=== PATIENT | female | born 1940 | race Two or more races ===

== ENCOUNTER 2024-11-07 11:30 | Day surgery (SDC) | payer MEDICARE, BC, SELFPAY ==
--- NOTE | 2024-11-05 14:40 | EKG_ITS ---
[facility] Test Date: 2024-11-05 Pat Name: YUE PEÑA Department: Room: - Gender: Female [employer]: [facility] : 1940 Requested By: David Glaser Order Number: [id number] Reading MD: David Glaser Measurements Intervals [place] Rate: 73 P: 25 [place]: 175 QRS: 4 QRSD: 87 T: 44 QT: 388 QTc: 428 Interpretive Statements SINUS RHYTHM No previous ECG available for comparison /store/S0/[id number]
[2024-11-05 16:03] LABS: Alanine Aminotransferase 12 U/L (10-49); Albumin, Serum 4.4 gm/dL (3.4-4.8); Albumin/Globulin Ratio 1.6 (1.2-2.2); Alkaline Phosphatase 74 U/L (46-116); Anion Gap 7 (7-16); Aspartate Amino Transferase 15 U/L (0-34); BUN/Creatinine Ratio 24 Ratio (12-20); Bilirubin,Total 0.6 mg/dL (0.3-1.2); Blood Urea Nitrogen 19 mg/dL (9-23); Calcium 9.4 mg/dL (8.3-10.6); Calcium (Corrected) 9.4 mg/dL (8.5-10.1); Carbon Dioxide 27.9 mMol/L (20.0-31.0); Chloride 108 mMol/L (98-107); Creatinine (Component) 0.8 mg/dL (0.6-1.3); Globulin 2.8 gm/dL (2.3-3.5); Glucose 121 mg/dL (74-106); Osmolality,Calculated 288 (275-295); Potassium 3.9 mMol/L (3.4-5.1); Sodium 143 mMol/L (136-145); Total Protein 7.2 gm/dL (5.7-8.2); eGFR > 60 See Note
[2024-11-07 12:16] VITALS: BP 137/64; PULSE 63; RESP 18; TEMP 36.6; O2SAT 96; BMI 28.3
[2024-11-07] MEDS: RINGERS LACTATED 1000 ML 1,000 ML 20 ML IV (14:08)
[2024-11-07 14:44] VITALS: BP 119/64; PULSE 70; RESP 19; TEMP 36.7; O2SAT 97
[2024-11-07 14:55] VITALS: BP 140/64; PULSE 63; RESP 17; O2SAT 100
[2024-11-07 15:05] VITALS: BP 143/70; PULSE 59; RESP 14; O2SAT 97
[2024-11-07 15:15] VITALS: BP 146/73; PULSE 58; RESP 16; TEMP 36.7; O2SAT 98
--- NOTE | 2024-11-07 16:26 | SUR.PHASEII ---
1444: Pt received in [facility] via gurney. Report from Dorinda FLANAGAN and Dr. Contreras. Pt sleepy. Is arousable with eye opening then drifts back to sleep. Resp even, unlabored. VS stable. No c/o pain, discomfort. 1520: Pt more awake, alert. Resp even, unlabored. VS stable. Denies pain. Sitting up tolerating po fluids with no difficulty swallowing and no n/v. 1530: Pt fully awake, oriented x3. Pt dressed and assisted to transport chair. Ambulation steady. Dr. Milelr in to talk with pt. 1540: Pt and daughter stated understanding of discharge instructions. Pt discharged from [facility] in stable condition.
== END 2024-11-07 15:40 | disposition home or self-care (01) ==
PROVIDERS: PCP Family Medicine; Referring Provider Internal Medicine Gastroenterology; Visit Provider Internal Medicine Gastroenterology
PROC: (CPT 43239; principal; 2024-11-07 12:45)
DX: K29.60 Other gastritis without bleeding (principal); K44.9 Diaphragmatic hernia without obstruction or gangrene; Q39.9 Congenital malformation of esophagus, unspecified; I10 Essential (primary) hypertension; Z01.810 Encounter for preprocedural cardiovascular examination; K29.50 Unspecified chronic gastritis without bleeding; K31.A0 Gastric intestinal metaplasia, unspecified
CPT/HCPCS: 43239; 36415; 80053; 93005; A4217; A4649; C1725; C1726; J7120

== ENCOUNTER → 2024-12-07 | Outpatient (CLI) | payer MEDICARE, BC, SELFPAY ==
[2024-12-07 11:59] LABS: Urea Breath Test Negative (Negative)
== END | disposition home or self-care (01) ==
LOC: COPL 10:07
PROVIDERS: PCP Family Medicine; Referring Provider Internal Medicine Gastroenterology; Visit Provider Internal Medicine Gastroenterology
DX: Z01.89 Encounter for other specified special examinations (principal); B96.81 Helicobacter pylori [H. pylori] as the cause of diseases classified elsewhere
CPT/HCPCS: 83013; 83014

== ENCOUNTER → 2024-12-14 | Outpatient (CLI) | payer MEDICARE, BC, SELFPAY ==
[2024-12-14 15:39] LABS: Collection Type, Urine Clean Catch
[2024-12-14 17:47] LABS: Bilirubin,Urine Negative (Negative); Blood,Urine Negative (Negative); Clarity,Urine Clear (Clear/Hazy); Color,Urine Lt-Yellow (Lt Yel-Yel); Glucose, Urine Negative (Negative); Ketones,Urine Negative (Negative); Leukocyte Esterase,Urine Negative (Negative); Nitrite,Urine Negative (Negative); PH,Urine 6.5 (5.0-7.0); Protein,Urine Negative (Neg - Trace); RBC,Urine < 1 /hpf (0-3); Specific Gravity,Urine 1.007 (1.001-1.035); Squamous Epithelial Cell,Urine 1 /hpf (0-5); Urobilinogen,Urine Negative mg/dL (0.0-1.0); WBC,Urine < 1 /hpf (0-5)
== END | disposition home or self-care (01) ==
LOC: SLDO 15:29
PROVIDERS: PCP Nurse Practitioner Family; Referring Provider Nurse Practitioner Family; Visit Provider Nurse Practitioner Family
DX: N30.00 Acute cystitis without hematuria (principal)
CPT/HCPCS: 81001; 87086

== ENCOUNTER → 2025-02-26 | Outpatient (CLI) | payer MEDICARE, BC, SELFPAY ==
[2025-02-26 13:45] LABS: Basophils % (Auto) 0 % (0-2.5); Eosinophils # (Auto) 0.2 Thou/mm3 (0.0-0.5); Eosinophils % (Auto) 4 % (0-10); Hematocrit 35.4 % (36.0-46.0); Hemoglobin 11.6 g/dL (12.0-16.0); Immature Granulocytes % (Auto) 0 % (0-0); Immature Granulocytes Auto 0.01 Thou/mm3 (0.00-0.00); Lymphocytes # (Auto) 2.5 Thou/mm3 (1.0-4.8); Lymphocytes % (Auto) 40 % (10-50); Mean Corpuscular HGB Conc 32.8 g/dl (31.0-37.0); Mean Corpuscular Hemoglobin 26.9 pg (25.0-35.0); Mean Corpuscular Volume 82 fL (80-100); Monocytes # (Auto) 0.5 Thou/mm3 (0.0-0.8); Monocytes % (Auto) 7 % (0-12); Neutrophils # (Auto) 3.1 Thou/mm3 (1.8-7.7); Neutrophils % (Auto) 49 % (37-80); Nucleated Red Blood Cell % 0 /100 WBC (0); Platelet Count 279 Thou/mm3 (140-440); RDW Standard Deviation 46.6 fL (36.4-46.3); Red Blood Count 4.31 Miln/mm3 (4.00-5.20); White Blood Count 6.4 Thou/mm3 (3.6-11.0)
[2025-02-26 13:59] LABS: T4 (Thyroxine) 10.3 mcg/dL (4.5-10.9)
[2025-02-26 14:05] LABS: Alanine Aminotransferase 10 U/L (10-49); Albumin, Serum 4.5 gm/dL (3.4-4.8); Alkaline Phosphatase 76 U/L (46-116); Anion Gap 9 (7-16); Aspartate Amino Transferase 15 U/L (0-34); BUN/Creatinine Ratio 32 Ratio (12-20); Bilirubin,Total 0.7 mg/dL (0.3-1.2); Blood Urea Nitrogen 19 mg/dL (9-23); Calcium 9.2 mg/dL (8.3-10.6); Calcium (Corrected) 9.2 mg/dL (8.5-10.1); Carbon Dioxide 25.9 mMol/L (20.0-31.0); Cardiac Risk Estimate 3.2 RATIO (3.7-5.6); Chloride 108 mMol/L (98-107); Cholesterol 167 mg/dL (132-200); Creatinine (Component) 0.6 mg/dL (0.6-1.3); Globulin 2.3 gm/dL (2.3-3.5); Glucose 107 mg/dL (74-106); HDL Cholesterol 53 mg/dL (40-60); LDL Cholesterol,Calculated 91 mg/dL (0-130); Osmolality,Calculated 287 (275-295); Potassium 4.1 mMol/L (3.4-5.1); Sodium 143 mMol/L (136-145); Thyroid Stimulating Hormone 0.47 uIU/mL (0.55-4.78); Total Protein 6.8 gm/dL (5.7-8.2); Triglycerides 117 mg/dL (30-150); eGFR > 60 See Note
== END | disposition home or self-care (01) ==
PROVIDERS: PCP Family Medicine; Referring Provider Family Medicine; Visit Provider Family Medicine
DX: I10 Essential (primary) hypertension (principal); E03.9 Hypothyroidism, unspecified; J45.20 Mild intermittent asthma, uncomplicated
CPT/HCPCS: 36415; 80053; 80061; 84436; 84443; 85025

== ENCOUNTER → 2025-03-12 | Outpatient (CLI) | payer MEDICARE, BC, SELFPAY ==
--- NOTE | 2025-03-12 12:20 | XR_ITS ---
Examination: Bone densitometry Date and time of exam:March 12, 2025 12:44 PM INDICATIONS: Menopause age 53, family history, mother osteoporosis, personal history osteopenia Technique: Lumbar spine and hip total bone mineralization values of an calculated. Peak reference and age match control results have been displayed. Findings: Lumbar spine total bone mineralization is0.859 gm/cm2. This is 1.7 standard deviations below peak reference. This is 1.1 standard deviations above age-matched controls. Hip total bone mineralization is 0.799 gm/cm2 This is 1.2 standard deviations below peak reference. This is 1.0 standard deviations above age-matched controls Impression: There is osteopenia based on lumbar spine measurements. There is osteopenia based on hip measurements Lumbar mineralization is decreased 0.9% compared with November 30, 2022 Hip mineralization is decreased 5.1% compared with November 30, 2022
== END | disposition home or self-care (01) ==
PROVIDERS: PCP Family Medicine; Referring Provider Family Medicine; Visit Provider Family Medicine
DX: M85.89 Other specified disorders of bone density and structure, multiple sites (principal)
CPT/HCPCS: 77080

== ENCOUNTER → 2025-04-01 | Outpatient (CLI) | payer MEDICARE, BC, SELFPAY ==
[2025-04-01 11:49] LABS: Thyroid Stimulating Hormone 0.79 uIU/mL (0.55-4.78)
[2025-04-08 06:48] LABS: ANA Screen, IFA NEGATIVE (NEGATIVE)
== END | disposition home or self-care (01) ==
LOC: COPL 10:41
PROVIDERS: PCP Family Medicine; Referring Provider Specialist; Visit Provider Specialist
DX: K30 Functional dyspepsia (principal); R13.10 Dysphagia, unspecified
CPT/HCPCS: 36415; 84443; 86038

== ENCOUNTER 2025-04-29 12:05 | Day surgery (SDC) | payer MEDICARE, BC, SELFPAY ==
[2025-04-29] VITALS (8 sets, daily range): BP systolic 129–193; BP diastolic 62–92; PULSE 62–81; RESP 14–26; TEMP 36.1–36.5; O2SAT 91–100; BMI 29.8
[2025-04-29] MEDS: BENZOCAINE 20% (Hurricaine) SPRAY 1 DOSE TOP (15:03)
[2025-04-29] MEDS: SODIUM CHLORIDE 0.9% 500 ML 500 ML 20 ML IV (15:04)
[2025-04-29] MEDS: MIDAZOLAM INJ 1 MG/ML VIAL 2 ML (ASD USE ONLY) 2 MG IVP (15:05)
[2025-04-29] MEDS: fentaNYL CIT INJ 50 mCg/ML AMP 2ML (ASD USE ONLY) IVP (15:05)
== END 2025-04-29 15:45 | disposition home or self-care (01) ==
PROVIDERS: PCP Nurse Practitioner Family; Referring Provider Specialist; Visit Provider Specialist
PROC: (CPT 43239; principal; 2025-04-29 13:15)
DX: K22.2 Esophageal obstruction (principal); K20.90 Esophagitis, unspecified without bleeding; K31.89 Other diseases of stomach and duodenum; K29.50 Unspecified chronic gastritis without bleeding; K31.A0 Gastric intestinal metaplasia, unspecified; K44.9 Diaphragmatic hernia without obstruction or gangrene
CPT/HCPCS: 43248; 43239; J1200; J2250; J3010; J7999; A9270

== ENCOUNTER → 2025-05-16 | Outpatient (CLI) | payer MEDICARE, BC, SELFPAY ==
--- NOTE | 2025-05-16 09:30 | XR_ITS ---
Examination: Esophagram standard 14 spot fluoroscopic films of the esophagus Upright PA chest single view Upright soft tissue lateral neck single view Fluoroscopy Date and time: May 16, 2025 0952 hours INDICATIONS: History esophageal dilatations times today difficulty swallowing persists difficult the with choking 6 months TECHNIQUE AND FINDINGS: Upright PA chest demonstrates mild prominence left ventricle, retrocardiac gastric hernia Soft tissue lateral neck normal epiglottis Mild prevertebral soft tissue prominence Patient swallowed thin barium with numerous secondary and tertiary esophageal contractions Stricture the gastroesophageal junction 70% Large retrocardiac gastric hernia Esophageal spasm IMPRESSION: Severe esophageal dysmotility Stricture at the gastroesophageal junction 70%, clinical correlation advised
== END | disposition home or self-care (01) ==
LOC: CDIM 09:14
PROVIDERS: PCP Family Medicine; Referring Provider Specialist; Visit Provider Specialist
DX: K22.2 Esophageal obstruction (principal)
CPT/HCPCS: 74220; A4649

== ENCOUNTER → 2025-06-10 | Outpatient (CLI) | payer MEDICARE, BC, SELFPAY ==
--- NOTE | 2025-06-10 09:09 | XR_ITS ---
Examination: Screening digital mammography, bilateral Computer aided detection 3-D breast Tomosynthesis, bilateral Date and time of exam: June 10, 2025 0940 hours, compared to mammograms dating to August 18, 2020 Indication: Screening Technique: Nonmagnified MLO, CC views of the breasts to been obtained, reconstructed from 3-D Tomosynthesis images. R2 computer aided detection program utilized for evaluation of suspicious masses and/or abnormal calcifications. 3-D Tomosynthesis images obtained. Findings: The breasts are heterogeneously dense, which may obscure small masses 12 mm nodule 12:00 position right breast partially indistinct margins Impression: BI-RADS Category 0: Incomplete: Need additional imaging evaluation Recommend follow-up spot tomographic views of 12 mm nodule 12:00 position right breast as well as bilateral breast sonography to complete the workup
--- NOTE | 2025-06-10 09:15 | XR_ITS ---
Examination: Breast ultrasound, unilateral, left complete Date and time of exam: June 10, 2025 0926 hours INDICATIONS: Family history breast cancer, mother, sister, negative left breast biopsy 2 years ago, 3:00 nodule 8 mm on left breast sonogram 06/08/2024. Technique: Real-time guzman scale ultrasonographic imaging performed left breast including all 4 quadrants as well as nipple retroareolar and axillary region. Findings: 3:00 nodule 6 x 7 mm partially indistinct margins IMPRESSION: BI-RADS Category 0: Incomplete: Need additional imaging evaluation Recommend follow-up diagnostic mammography
[2025-06-10 11:55] LABS: Basophils # (Auto) 0.0 Thou/mm3 (0.0-0.2); Basophils % (Auto) 1 % (0-2.5); Eosinophils # (Auto) 0.2 Thou/mm3 (0.0-0.5); Eosinophils % (Auto) 3 % (0-10); Hematocrit 38.4 % (36.0-46.0); Hemoglobin 12.2 g/dL (12.0-16.0); Immature Granulocytes Auto 0.01 Thou/mm3 (0.00-0.00); Lymphocytes # (Auto) 2.6 Thou/mm3 (1.0-4.8); Lymphocytes % (Auto) 43 % (10-50); Mean Corpuscular HGB Conc 31.8 g/dl (31.0-37.0); Mean Corpuscular Hemoglobin 27.5 pg (25.0-35.0); Mean Corpuscular Volume 87 fL (80-100); Monocytes # (Auto) 0.4 Thou/mm3 (0.0-0.8); Monocytes % (Auto) 7 % (0-12); Neutrophils # (Auto) 2.8 Thou/mm3 (1.8-7.7); Neutrophils % (Auto) 47 % (37-80); Nucleated Red Blood Cell # 0.00 Thou/mm3 (0.00-0.00); Nucleated Red Blood Cell % 0 /100 WBC (0); Platelet Count 275 Thou/mm3 (140-440); RDW Standard Deviation 47.4 fL (36.4-46.3); Red Blood Count 4.44 Miln/mm3 (4.00-5.20); White Blood Count 6.0 Thou/mm3 (3.6-11.0)
[2025-06-10 12:13] LABS: T4 (Thyroxine) 10.8 mcg/dL (4.5-10.9)
[2025-06-10 12:16] LABS: Alanine Aminotransferase 8 U/L (10-49); Albumin, Serum 4.4 gm/dL (3.4-4.8); Albumin/Globulin Ratio 1.8 (1.2-2.2); Alkaline Phosphatase 75 U/L (46-116); Anion Gap 10 (7-16); Aspartate Amino Transferase 17 U/L (0-34); BUN/Creatinine Ratio 16 Ratio (12-20); Bilirubin,Total 0.8 mg/dL (0.3-1.2); Blood Urea Nitrogen 11 mg/dL (9-23); Calcium 9.8 mg/dL (8.3-10.6); Calcium (Corrected) 9.8 mg/dL (8.5-10.1); Carbon Dioxide 26.8 mMol/L (20.0-31.0); Chloride 107 mMol/L (98-107); Creatinine (Component) 0.7 mg/dL (0.6-1.3); Globulin 2.5 gm/dL (2.3-3.5); Glucose 98 mg/dL (74-106); Osmolality,Calculated 286 (275-295); Potassium 3.9 mMol/L (3.4-5.1); Sodium 144 mMol/L (136-145); Thyroid Stimulating Hormone 1.13 uIU/mL (0.55-4.78); Total Protein 6.9 gm/dL (5.7-8.2); eGFR > 60 See Note
== END | disposition home or self-care (01) ==
PROVIDERS: PCP Family Medicine; Referring Provider Family Medicine; Visit Provider Surgery
DX: Z13.21 Encounter for screening for nutritional disorder (principal); R92.8 Other abnormal and inconclusive findings on diagnostic imaging of breast; I10 Essential (primary) hypertension; E03.9 Hypothyroidism, unspecified; K21.9 Gastro-esophageal reflux disease without esophagitis; N63.15 Unspecified lump in the right breast, overlapping quadrants; Z80.3 Family history of malignant neoplasm of breast
CPT/HCPCS: 36415; 76641; 77063; 77067; 80053; 84436; 84443; 85025

== ENCOUNTER → 2025-07-12 | Outpatient (CLI) | payer MEDICARE, BC, SELFPAY ==
--- NOTE | 2025-07-12 10:15 | XR_ITS ---
Examination: Breast ultrasound complete, bilateral Date and time of exam: July 12, 2025, 1009 hours INDICATIONS: Mammogram 06/10/2025 12 mm nodule 12 o'clock position right breast, breast sonogram 06/10/2025 2:00 nodule 7 mm Technique: Real-time grayscale ultrasonographic imaging bilateral breasts, including all 4 quadrants as well as nipple retroareolar and axillary regions. Findings: Sonographic images right breast 2:00 cyst 5 x 3 mm No solid nodules Sonographic images left breast 2:00 nodule with calcifications lobular margins 9 x 6 mm IMPRESSION: BI-RADS Category 3: Probably benign findings 1 additional 6-month left breast sonogram follow-up is needed to document stability of 2:00 nodule described above
--- NOTE | 2025-07-12 11:15 | XR_ITS ---
Examination: Diagnostic digital mammography, unilateral, right Computer aided detection 3-D breast Tomosynthesis, unilateral Date and time of exam: 07/12 2025 1021 am Indications 12 oclock nodule on mammogram 9 2024 Technique: Nonmagnified MLO, CC views of the right breast have been obtained, reconstructed from 3-D Tomosynthesis images. R2 computer aided detection program utilized for evaluation of suspicious masses and/or abnormal calcifications. 3-D Tomosynthesis images obtained. Findings: Heterogeneous breast density, which may obscure small masses No suspicious nodule confirmed Impression: BI-RADS category II: Benign findings Return to followup mammography
== END | disposition home or self-care (01) ==
LOC: CDIM 09:53
PROVIDERS: PCP Family Medicine; Referring Provider Surgery; Visit Provider Surgery
DX: R92.323 Mammographic fibroglandular density, bilateral breasts (principal); N63.12 Unspecified lump in the right breast, upper inner quadrant
CPT/HCPCS: 76641; 77061; 77065; G0279